=== PATIENT | female | born 1990 | race Caucasian/White ===

== ENCOUNTER 2017-08-07 18:13 | Inpatient (IN) | payer BC, OTHER ==
[~2017-08-07] VITALS: Ht 162.6 cm; Wt 99.7 kg
[2017-08-07 18:28] VITALS: Ht 162.6 cm; Wt 99.7 kg
[2017-08-07] MEDS ORDERED: PREN1TAB13 PO (18:28)
[2017-08-07 18:29] VITALS: BP 125/67; PULSE 109; RESP 18
[2017-08-07 19:37] LABS: ADD UMIC YES; UR ASCORBIC ACID NEGATIVE (NEGATIVE); UR BACTERIA FEW /HPF (NONE SEEN); UR BILIRUBIN (Dip) NEGATIVE (NEGATIVE); UR BLOOD (Dip) 1+ mg/dL (NEGATIVE); UR CLARITY CLEAR (CLEAR); UR COLOR YELLOW (YELLOW); UR GLUCOSE (Dip) NEGATIVE (NEGATIVE); UR KETONES (Dip) NEGATIVE (NEGATIVE); UR LEUKOCYTE ESTERASE (Dip) 3+ Leu/ul (NEGATIVE); UR NITRITE (Dip) NEGATIVE (NEGATIVE); UR RBC 2 /HPF (0-5); UR SPECIFIC GRAVITY (Dip) 1.008 (1.003-1.030); UR TOTAL PROTEIN (Dip) NEGATIVE (NEGATIVE); UR UROBILINOGEN (Dip) NEGATIVE (NEGATIVE)
--- NOTE | 2017-08-07 19:48 | RADRPT ---
PROCEDURE: LIMITED OBSTETRICAL ULTRASOUND CLINICAL INDICATION: 26 years of age, female. . labor. TECHNIQUE: Multiple sonographic images of the pelvis were obtained. Transabdominal imaging was pe rformed and transvaginal imaging of the cervix was performed. The images were reviewed on a PACS [employer]. Image quality: Satisfactory. COMPARISON: No prior studies are available for comparison. FINDINGS: [place] : Number of fetuses: 1 GENERAL EVALUATION: Cardiac activity: Present. FHR 125 bpm Presentation: Cephalic. Placenta: Placenta site: Anterior. No evidence of placental previa. Placental grade 1. Amniotic fluid: Grossly normal. Maximal vertical pocket at incompetent cervix measures 6.5 cm. Maxim um vertical pocket in the remainder of the gestational sac measures 2.5 cm. Cervix (transvaginal): 0 cm. The amniotic sac protrudes through an incompetent cervix into the vagin a. DATING: Clinical ANGELITO: Unknown Clinical EGA: Unknown BIOMETRY: BPD = 4.8 cm , 20 weeks 4 days HC = 17.5 cm , 20 weeks 0 days AC = 17.1 cm , 22 weeks 1 day FL = 3.8 cm , 22 weeks 1 day Composite sonographic age: 21 weeks 2 days plus or minus 2 weeks Estimated due date by ultrasound measurements: December 16, 2017 EFW 454 grams. LIMITED ANATOMY: Not evaluated. IMPRESSION: 1. Single living fetus in cephalic presentation. 2. Composite sonographic age is 21 weeks 2 days and estimated due date by ultrasound measurements is December 16, 2017. Estimated weight is 454 grams. 3. Amniotic fluid volume is grossly normal. 4. Incompetent cervix with no measurable cervical canal. The amniotic sac protrudes through an incom petent cervix into the vagina ("bulging bag"). 5. Anterior placenta, grade 1. Findings with regards to incompetent cervix were discussed with Chikis Holden RN by Dr. Lisandra Arreguin on August 07, 2017 at 07:45 p.m.. She will give the results to the provider. RPTAT: HCTS Physician Herlinda Date Time Electronically viewed and signed by Physician Herlinda on 08/07/2017 19:47 CS/
[2017-08-07] MEDS ORDERED: ACETAMINOPHEN 325 MG TAB PO PRN (21:00)
[2017-08-07] MEDS ORDERED: AL HYDROX/MG HYDROX/SIMETH 30 ML CUP PO PRN (21:00)
--- NOTE | 2017-08-07 21:57 | HP ---
Date/Time of Note Date/Time of Note DATE: 08/07/17 TIME: 21:15 OB - History Hx of Present Free Text/Dictation August 07, 2017. 26-year-old with IUP at 21 weeks and 2 days with care with Dr. Norm Hamilton again presented with complaint of pelvic pain for the last 3 days and increase vaginal discharge for the last 2 days. Patient today felt a bulge inside her vagina that brought her to the hospital. She was noted to have5-6 cm cervical dilatation with hourglassing bulging bag of water through the cervix. Ultrasound showed evidence of cervical dilatation and cervical incompetence. Adequate amniotic fluid noted in obstetric ultrasound Patient denies any other complaints. Denies any competition during her course. Denies any abnormal Pap smear or procedure on her cervix : 1 Para: 0 Spontaneous : 0 Therapeutic : 0 Care: Good Care Ultrasounds: Other (Normal first trimester ultrasound) Obstetrical Complications: None Past Family/Social History * Past Medical, Surgical, Family and Obstetric Histories reviewed from chart. OB Admission Exam Vital Signs Vital Signs Vital Signs Date Time Temp Pulse Resp B/P Pulse Ox O2 Delivery O2 Flow Rate FiO2 08/07/17 18:29 98.9 109 18 125/67 97 Room Air Physical Exam HEENT: WNL Lungs: Clear Abdomen: WNL Extremities: Normal Cervical Dilatation: 6cm Effacement: Other (90%) Station: 0 Membranes: Intact Amniotic Fluid: Other (BBOW seen in vaginal exam) Heart Rate: 120's Intensity: Moderate OB Assessment/Plan Other Assessment: IUP at 21 weeks and 2 days by Stated date consistent with today's ultrasound labor vs cervical incompetence Advance cervical dilation with hourglassing of the membranes through the cervix seen Discussed about risk for PTL, PPROM at extreme prematurity, Understand that the baby at this GA is non viable and non resusciatated by claim processor due to extreme prematurity and poor out come Not a candidate for Urgent or emergent cerclage due to advanced cervical dilatation Increased risk of rupture of membrane during the procedure discussed with the patient UTI noted . Asymptomatic UTI. Needs treatment Discussed with the patient and consulted maternal- medicine , DR Castellanos, who recommended delivery however patient desires to proceed with expectant management poor outcome in case of spontaneous rupture of membrane with advanced cervical dilatation discussed with the patient. Patient still desires to proceed with expectant management Consider treatment for UTI with IV Ancef Placed the patient in Trendelenburg Strict bedrest Colace 100 mg p.o. twice daily Perinatology and neonatology consultation tomorrow Patient verbalized understanding . all questions were answered CHAVA JORGE MD Aug 07, 2017 21:57
[2017-08-07] MEDS: LACTATED RINGER'S 1,000 ML IV SCH (22:19)
[2017-08-07] MEDS: CEFAZOLIN 2 GM/50 ML (PMX) 50 ML IVPB SCH (22:28)
[2017-08-07 22:42] LABS: BASOPHIL # 0.1 10^3/ul (0.0-0.1); BASOPHILS % 0.3 % (0.0-2.0); EOSINOPHILS # 0.1 10^3/ul (0.0-0.5); EOSINOPHILS % 0.3 % (0.0-7.0); HEMATOCRIT 34.8 % (37.0-47.0); HEMOGLOBIN 11.6 g/dl (12.0-16.0); LYMPHOCYTES # 2.2 10^3/ul (0.8-2.9); LYMPHOCYTES % 12.4 % (15.0-51.0); MEAN CORPUSCULAR HEMOGLOBIN 28.4 pg (29.0-33.0); MEAN CORPUSCULAR HGB CONC 33.3 g/dl (32.0-37.0); MEAN CORPUSCULAR VOLUME 85.3 fl (82.0-101.0); MEAN PLATELET VOLUME 10.1 fl (7.4-10.4); MONOCYTE # 1.1 10^3/ul (0.3-0.9); MONOCYTES % 5.8 % (0.0-11.0); NEUTROPHIL # 14.5 10^3/ul (1.6-7.5); NEUTROPHILS % 80.4 % (39.0-77.0); PLATELET COUNT 254 10^3/UL (140-415); RED BLOOD COUNT 4.08 10^6/ul (4.20-5.40); RED CELL DISTRIBUTION WIDTH 12.2 % (11.5-14.5); WHITE BLOOD COUNT 18.1 10^3/ul (4.8-10.8)
[2017-08-07 23:06] LABS: INR 0.97; PARTIAL THROMBOPLASTIN TIME 27.2 Sec (25.0-35.0); PROTIME 12.9 Sec (12.2-14.2)
[2017-08-07] MEDS ORDERED: BUTORPHANOL 2 MG INJ IV PRN (23:30)
[2017-08-07] MEDS: DOCUSATE SODIUM 100 MG CAP PO SCH (23:30)
[2017-08-07 23:52] LABS: ALBUMIN 3.7 g/dl (3.3-4.9); ALBUMIN/GLOBULIN RATIO 0.94; BILIRUBIN,INDIRECT 0.4 mg/dl (0-1.1); BILIRUBIN,TOTAL 0.4 mg/dl (0.2-1.3); CALCIUM 9.6 mg/dl (8.4-10.2); CREATININE 0.61 mg/dl (0.44-1.00); POTASSIUM 3.7 mmol/L (3.5-5.1); TOTAL PROTEIN 7.6 g/dl (6.1-8.1)
--- NOTE | 2017-08-08 03:42 | TRIAGE ---
OB Triage Datetime Report Generated by CPN: 08/08/2017 03:42 Datetime: 08/08/2017 03:05 Temperature Route: Oral Pain Assessment Pain Scale: 4 Pain Presence: Intermittent Pain Type: Cramping; Contraction Pain Location: Abdomen Pain Relief Measures: Comfort Measures Pain Assessment Comments: Pt reports occasional UCs/cramping. Pt states no headache. Datetime: 08/08/2017 03:00 Labor Evaluation Frequency: Occasional Monitor Mode: External Duration (sec)2399: 40-60 Quality: Mild Resting Tone [place]: Relaxed Datetime: 08/08/2017 02:00 Labor Evaluation Frequency: Occasional Monitor Mode: External Quality: Mild Resting Tone [place]: Relaxed Contraction Comments: Uterine irritability noted. GA 21.3 Datetime: 08/08/2017 01:35 Temperature Route: Oral Pain Assessment Pain Scale: 4 Pain Presence: Intermittent Pain Type: Contraction Pain Location: Abdomen; Head Pain Relief Measures: Comfort Measures Pain Assessment Comments: Pt states 410 UC pain and 410 headache pain. Pt denies s/sx of vision changes. Datetime: 08/08/2017 01:00 Labor Evaluation Frequency: N/A Monitor Mode: External Resting Tone [place]: Relaxed Contraction Comments: Uterine irritability noted Datetime: 08/08/2017 00:00 Labor Evaluation Frequency: Occasional Monitor Mode: External Quality: Mild Resting Tone [place]: Relaxed Contraction Comments: [place] adjusted, pt sidelying position, GA 21.3 Comments: Doppler done at 2333 Datetime: 08/07/2017 23:33 Heart Rate FHR Baseline Rate: 150 Monitor Mode: Doppler Comments: Doppler q shift per MD order Datetime: 08/07/2017 23:32 Pain Assessment Pain Scale: 4 Pain Presence: Intermittent Pain Type: Contraction Pain Location: Abdomen Pain Relief Measures: Comfort Measures Pain Assessment Comments: Pt states that pain is reduced compared to at time of admission - origin ally pain level 8/10 with UCs. Datetime: 08/07/2017 23:30 Time of Arrival: 08/07/2017 22:00 EGA: 21.2 Arrived By: Stretcher Arrived From: Other Unit in Hospital Datetime: 08/07/2017 23:16 Assessment Type: Admission Assessment Maternal Assessment Level of Consciousness: Fully Conscious DTR's/Clonus: DTRs 2+; No Clonus Headache: Denies Blurred Vision: No Respiratory Effort: Unlabored; Regular Rhythm; Equal Expansion Breath Sounds, Left: Clear and Equal Breath Sounds, Right: Clear and Equal Nausea/Vomiting: Denies RUQ Epigastric Pain: Denies Lower Extremities Edema: None Degree: None Upper Extremities Edema: None Degree: None Facial Edema: None Fall Risk Assessment History of Falling: (0) No Secondary Diagnosis: (0) No Ambulatory Aid: (0) Bedrest/Nurse Assist Gait: (0) Normal/Bedrest/Immobile Mental Status: (0) Oriented to Own Ability Datetime: 08/07/2017 23:00 Labor Evaluation Frequency: N/A Monitor Mode: External Resting Tone [place]: Relaxed Contraction Comments: Uterine activity noted Datetime: 08/07/2017 22:45 Stage of : Antepartum Datetime: 08/07/2017 22:39 Membrane Status: Ruptured Datetime: 08/07/2017 20:32 Vaginal Exam Dilatation (cms): 4.0 Datetime: 08/07/2017 19:27 Membrane Status: Bulging Datetime: 08/07/2017 18:25 Assessment Type: Triage Maternal Assessment Level of Consciousness: Fully Conscious DTR's/Clonus: DTRs 2+; No Clonus Headache: Denies Blurred Vision: No Respiratory Effort: Unlabored; Regular Rhythm; Equal Expansion Breath Sounds, Left: Clear and Equal Breath Sounds, Right: Clear and Equal Nausea/Vomiting: Denies RUQ Epigastric Pain: Denies Lower Extremities Edema: None Degree: None Upper Extremities Edema: None Degree: None Facial Edema: None Fall Risk Assessment History of Falling: (0) No Secondary Diagnosis: (0) No Ambulatory Aid: (0) Bedrest/Nurse Assist IV Therapy: (0) No Gait: (0) Normal/Bedrest/Immobile Mental Status: (0) Oriented to Own Ability Fall Score: 0 Fall Risk Score Definition: No Risk: No action required Datetime: 08/07/2017 18:23 Time of Arrival: 08/07/2017 18:04 EGA: 21.2 Arrived By: Ambulatory Arrived From: Home Chief Complaint: PT HERE C/O CRAMPS/VAG DISCHARGE Movement: Present Contractions: Irregular Rupture of Membranes: Unsure Vaginal Bleeding: None Vaginal Discharge: Present Recent Sexual Intercouse: Denies Abdominal Trauma: Not Applicable Patient Complaints: Cramping; Back Pain Time Provider Notified: 08/07/2017 18:35 Provider Notified: ESHAGHIAN Initial Plan: EFW/NELLI/CVL/UA/ROM PLUS/ Datetime: 08/07/2017 18:18 Monitor Mode: External Monitor Mode: Doppler Comments: fht's doppled in the 150's
[2017-08-08] MEDS: LACTATED RINGER'S 1,000 ML IV SCH ×2 (05:09→09:55)
[2017-08-08] MEDS: BUTORPHANOL 2 MG INJ IV PRN ×2 (06:08→09:37)
[2017-08-08] MEDS: CEFAZOLIN 2 GM/50 ML (PMX) 50 ML IVPB SCH ×3 (06:09→21:50)
[2017-08-08] MEDS: DOCUSATE SODIUM 100 MG CAP PO SCH (09:00)
[2017-08-08] MEDS ORDERED: PRENATAL VITAMIN PO SCH (09:00)
--- NOTE | 2017-08-08 10:08 | CONS ---
Date/Time of Note Date/Time of Note DATE: 08/08/17 TIME: 09:55 Consultation Date/Type/Reason Admit Date/Time Aug 07, 2017 at 20:30 Date of Consultation: Aug 08, 2017 Reason for Consultation labor , premature rupture of membranes with history of leaking amniotic fluid for the last 3 days Gestational age 21 and 3/7 weeks-consult requested by the admitting doctor Dr. Taylor Hx of Present Illness 26-year-old mom, 1, para 0 admitted with history of intermittent lower abdominal pain for the last 3 days and excessive yellow vaginal fluidy discharge for the last 3 days. Rupture of membranes positive and mom continues to leak fluid. She has bulging bag of water and dilated cervix estimated weight is 454 g .. Gestational age 21 and 3 7 weeks- nonviable fetus. : Had care with and denies history of any problems other than excessive watery vaginal discharge for the last 3 days. She is A, Rh+ and her CBC upon admission shows WBC of 18,100 with 80 neutrophils and 12 lymphocytes. She is on antibiotics now. Other labs from the clinic not available at this time. Hepatitis.B Surface antigen negative and HIV negative. Additional Comments I have explained to mom and her significant other with maternal grandmother present about non-viability and no resuscitative efforts after even if the baby has heart rate , possible respiratory effort and movement for a short while at 21 and 3 /7 weeks. Parents seem to want resuscitative efforts made but have explained to them about non-viability and they want to explore with the door technician whether tocolytics should be started on mom and she wants to continue the if possible. At this point if the baby delivers within the next 24-72 hours , we will not resuscitate the baby in view of non- viability and do only comfort care . Parents seem borderline agreeable about no resuscitation if the baby is delivered within the next 24-72 hours. Thank you very much for allowing me to take part in the care of this patient . Will follow the mom as needed . Past Medical History Medical History: no pertinent history Past Surgical History Past Surgical Hx: no surgical history Family History Significant Family History: no pertinent family hx Social History Alcohol Use: none Smoking Status: Never smoker Drug Use: none Other Social History First child for the parents, no other history pertinent to mom's condition. Exam/Review of Systems Vital Signs Vitals Vital Signs Date Time Temp Pulse Resp B/P Pulse Ox O2 Delivery O2 Flow Rate FiO2 08/07/17 18:29 98.9 109 18 125/67 97 Room Air Intake and Output 08/07/17 08/07/17 08/08/17 15:00 23:00 07:00 Intake Total 125 ml 875 ml Output Total 850 ml Balance 125 ml 25 ml Results Result Diagram: 08/07/17 2215 08/07/174 Results 24 hrs Laboratory Tests Test 08/07/17 18:20 08/07/17 20:20 08/07/17 21:24 08/07/17 22:15 Urine Color YELLOW Urine Clarity CLEAR Urine pH 6.0 Urine Specific [place] 1.008 Urine Ketones NEGATIVE Urine Nitrite NEGATIVE Urine Bilirubin NEGATIVE Urine Urobilinogen NEGATIVE Urine Leukocyte Esterase 3+ H Urine Microscopic RBC 2 Urine Microscopic WBC 46 H Urine Bacteria FEW A Urine Hemoglobin 1+ H Urine Glucose NEGATIVE Urine Total Protein NEGATIVE Membranes Rupture POSITIVE H Prothrombin Time 12.9 Prothrombin Time Ratio 1.0 INR International Normalized Ratio 0.97 Activated Partial Thromboplast Time 27.2 Sodium Level 134 L Potassium Level 3.7 Chloride Level 101 Carbon Dioxide Level 23 Anion Gap 14 Blood Urea Nitrogen 8 Creatinine 0.61 Glucose Level 81 Calcium Level 9.6 Total Bilirubin 0.4 Direct Bilirubin 0.00 Indirect Bilirubin 0.4 Aspartate Amino Transf (AST/SGOT) 30 Alanine Aminotransferase (ALT/SGPT) 26 Alkaline Phosphatase 99 Total Protein 7.6 Albumin 3.7 Globulin 3.90 H Albumin/Globulin Ratio 0.94 White Blood Count 18.1 H Red Blood Count 4.08 L Hemoglobin 11.6 L Hematocrit 34.8 L Mean Corpuscular Volume 85.3 Mean Corpuscular Hemoglobin 28.4 L Mean Corpuscular Hemoglobin Concent 33.3 Red Cell Distribution Width 12.2 Platelet Count 254 Mean Platelet Volume 10.1 Neutrophils % 80.4 H Lymphocytes % 12.4 L Monocytes % 5.8 Eosinophils % 0.3 Basophils % 0.3 Nucleated Red Blood Cells % 0.0 Neutrophils # 14.5 H Lymphocytes # 2.2 Monocytes # 1.1 H Eosinophils # 0.1 Basophils # 0.1 Nucleated Red Blood Cells # 0.0 Hepatitis B Surface Antigen NEGATIVE HIV (1&2) Antibody NEGATIVE Medications Medications Current Medications Lactated Ringer's (Lr) 1,000 ml @ 125 mls/hr Q8H IV Last administered on 08/08 05:09; Admin Dose 125 MLS/HR; Start 08/07/17 at 20:37 Prenat Multivit/ [employer]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/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 Ac () 1 tab DAILY PO ; Start at 09:00 Docusate Sodium (Colace) 100 mg BID PO ; Start 08/07/17 at 21:00 Acetaminophen (Tylenol Tab) 650 mg Q4H PRN PO PAIN AND OR ELEVATED TEMP; Start 08/07/17 at 21:00 Al Hydrox/Mg Hydrox/ Simethicone 30 ml 30 ml Q6H PRN PO GASTROINTESTINAL UPSET ; Start 08/07/17 at 21:00 Cefazolin Sodium/ Dextrose (Ancef 2 Gm/50 ml (Pmx)) 50 ml @ 100 mls/hr Q8 IVPB Last administered on 08/08/17 06:09; Admin Dose 100 MLS/HR; Start 08/07/17 at 22:00 Butorphanol Tartrate (Stadol) 2 mg Q3H PRN IV PAIN Last administered on 09:37; Admin Dose 2 MG; Start 08/07/17 at 23:30 Butorphanol Tartrate (Stadol) 1 mg Q3H PRN IV PAIN; Start 08/07/17 at 23:30 KATTY SALAS MD Aug 08, 2017 10:06
[2017-08-08] MEDS ORDERED: LACTATED RINGER'S 1,000 ML IV SCH (10:21)
[2017-08-08] MEDS ORDERED: OXYTOCIN 30 UNITS/LR 500 ML IV ONE (10:21)
[2017-08-08] MEDS ORDERED: CARBOPROST 250 MCG INJ IM PRN ×2 (10:30→11:00)
[2017-08-08] MEDS ORDERED: MISOPROSTOL 200 MCG TAB PR PRN ×2 (10:30→11:00)
[2017-08-08] MEDS ORDERED: METHYLERGONOVINE 0.2 MG INJ IM PRN ×2 (10:30→11:00)
[2017-08-08] MEDS ORDERED: OXYTOCIN 30 UNITS/LR 500 ML IV PRN ×2 (10:30→11:00)
[2017-08-08] MEDS ORDERED: LIDOCAINE 1% (MPF) 30 ML INJ INJ PRN (10:30)
--- NOTE | 2017-08-08 10:49 | LDN ---
Date/Time of Note Date/Time of Note DATE: 08/08/17 TIME: 10:45 Delivery Summary IUP at 21 weeks gestational age labor/premature rupture of membrane Weight 330 Grams Weeks of Gestation 21 Placenta Delivered: Spontaneously Meconium: none Episiotomy: No Laceration repair: No laceration Anesthesia type: None Estimated blood loss: 100 Sponge & Needle done & correct: Yes All needle counts correct: Yes Any foreign bodies felt in the: No Problems: Delivery Information Sex Infant Sex: female Apgars 1 Minute: 3 5 Minute: 2 10 Minute: 2 Suctioning Nose & mouth suctioned at jaziel: No Delee suction performed: No Umbilical Cord Umbilical cord with: 3 Vessels Cord presentations: no nuchal cord Cord Blood was obtained: No PATY CHUNG MD Aug 08, 2017 10:49
[2017-08-08] MEDS ORDERED: WITCH HAZEL/GLYCERIN PAD PR PRN (11:00)
[2017-08-08] MEDS ORDERED: DIPHENHYDRAMINE 25 MG CAP PO PRN (11:00)
[2017-08-08] MEDS ORDERED: SENNA/DOCUSATE NA (8.6MG/50MG) TAB PO PRN (11:00)
[2017-08-08] MEDS ORDERED: ONDANSETRON 4 MG TAB PO PRN (11:00)
[2017-08-08] MEDS ORDERED: OXYCODONE/ASPIRIN (4.88/325) TAB PO PRN ×2 (11:00)
[2017-08-08] MEDS ORDERED: DIBUCAINE 1% 30 GM OINT TOP PRN (11:00)
[2017-08-08] MEDS ORDERED: BENZOCAINE 20% 56 ML SPRAY TOP PRN (11:00)
[2017-08-08] MEDS ORDERED: LANOLIN 7 GM TUBE TOP PRN (11:00)
[2017-08-08] MEDS ORDERED: ONDANSETRON 4 MG INJ IV PRN (11:00)
[2017-08-08] MEDS ORDERED: ZOLPIDEM 5 MG TAB PO PRN (11:00)
[2017-08-08] MEDS ORDERED: OXYTOCIN 30 UNITS/LR 500 ML IV SCH (11:30)
[2017-08-08 11:38] LABS: BARBITURATES Negative (NEGATIVE); BENZODIAZEPINES Negative (NEGATIVE); CANNABINOIDS Negative (NEGATIVE); COCAINE Negative (NEGATIVE); OPIATES Negative (NEGATIVE)
[2017-08-08 11:46] LABS: BASOPHIL # 0.1 10^3/ul (0.0-0.1); BASOPHILS % 0.2 % (0.0-2.0); HEMATOCRIT 32.6 % (37.0-47.0); LYMPHOCYTES # 0.8 10^3/ul (0.8-2.9); LYMPHOCYTES % 3.7 % (15.0-51.0); MEAN CORPUSCULAR HEMOGLOBIN 28.5 pg (29.0-33.0); MEAN CORPUSCULAR HGB CONC 33.7 g/dl (32.0-37.0); MEAN CORPUSCULAR VOLUME 84.5 fl (82.0-101.0); MEAN PLATELET VOLUME 9.9 fl (7.4-10.4); MONOCYTE # 0.8 10^3/ul (0.3-0.9); MONOCYTES % 3.9 % (0.0-11.0); NEUTROPHIL # 18.8 10^3/ul (1.6-7.5); NEUTROPHILS % 90.9 % (39.0-77.0); PLATELET COUNT 239 10^3/UL (140-415); RED BLOOD COUNT 3.86 10^6/ul (4.20-5.40); RED CELL DISTRIBUTION WIDTH 12.1 % (11.5-14.5); WHITE BLOOD COUNT 20.7 10^3/ul (4.8-10.8)
--- NOTE | 2017-08-08 11:54 | PN ---
Date/Time of Note Date/Time of Note DATE: 08/08/17 TIME: 11:33 OB Subjective Subjective Subjective Number 2016 Hospital consult. This patient is a 26 years old primigravida admitted in the hospital yesterday due to premature contractions she is 21 weeks and 3 days now her main complaint is lower abdominal pain and contractions. Prior to this admission to the hospital she had a fairly normal course up to a week ago when she started having contractions abdomen was examined in the clinic she was around 4-4 cm dilated with bulging intact amniotic membranes. heart tone was present. Patient was requesting pain medication due to contractions. Both patient her and deformity very concerned of her premature contractions and prospect of loss of this baby. On my examination her ear nose throat appears to be normal neck was normal no thyromegaly no lymph node enlargement anywhere in the body Her chest was clear to auscultation or percussion heart normal sinus rhythm.No murmur. Abdomen was soft she was having fairly frequent contractions and was complaining of pain as a result of contraction. As I mentioned she was given analgesics. On pelvic examination the membrane was bulging as well as part of the head and cervix was dilated up to 7-8 cm when I saw her. She already received antibiotic. Laboratory Tests Test 08/07/17 18:20 08/07/17 20:20 08/07/17 21:24 08/07/17 22:15 Urine Color YELLOW Urine Clarity CLEAR Urine pH 6.0 Urine Specific [place] 1.008 Urine Ketones NEGATIVEmg/dL Urine Nitrite NEGATIVEmg/dL Urine Bilirubin NEGATIVEmg/dL Urine Urobilinogen NEGATIVEmg/dL Urine Leukocyte Esterase 3+[place]/ul Urine Microscopic RBC 2/HPF Urine Microscopic WBC 46/HPF Urine Bacteria FEW/HPF Urine Hemoglobin 1+mg/dL Urine Glucose NEGATIVEmg/dL Urine Total Protein NEGATIVEmg/dl Urine Opiates Screen Negative Urine Barbiturates Negative Urine Amphetamines Screen Negative Urine Benzodiazepines Screen Negative Urine Cocaine Screen Negative Urine Cannabinoids Negative Membranes Rupture POSITIVE Prothrombin Time 12.9Sec Prothrombin Time Ratio 1.0 INR International Normalized Ratio 0.97 Activated Partial Thromboplast Time 27.2Sec Sodium Level 134mmol/L Potassium Level 3.7mmol/L Chloride Level 101mmol/L Carbon Dioxide Level 23mmol/L Anion Gap 14 Blood Urea Nitrogen 8mg/dl Creatinine 0.61mg/dl Glucose Level 81mg/dl Calcium Level 9.6mg/dl Total Bilirubin 0.4mg/dl Direct Bilirubin 0.00mg/dl Indirect Bilirubin 0.4mg/dl Aspartate Amino Transf (AST/SGOT) 30IU/L Alanine Aminotransferase (ALT/SGPT) 26IU/L Alkaline Phosphatase 99IU/L Total Protein 7.6g/dl Albumin 3.7g/dl Globulin 3.90g/dl Albumin/Globulin Ratio 0.94 White Blood Count 18.110^3/ul Red Blood Count 4.0810^6/ul Hemoglobin 11.6g/dl Hematocrit 34.8% Mean Corpuscular Volume 85.3fl Mean Corpuscular Hemoglobin 28.4pg Mean Corpuscular Hemoglobin Concent 33.3g/dl Red Cell Distribution Width 12.2% Platelet Count 39497^3/UL Mean Platelet Volume 10.1fl Neutrophils % 80.4% Lymphocytes % 12.4% Monocytes % 5.8% Eosinophils % 0.3% Basophils % 0.3% Nucleated Red Blood Cells % 0.0/100WBC Neutrophils # 14.510^3/ul Lymphocytes # 2.210^3/ul Monocytes # 1.110^3/ul Eosinophils # 0.110^3/ul Basophils # 0.110^3/ul Nucleated Red Blood Cells # 0.010^3/ul Hepatitis B Surface Antigen NEGATIVE HIV (1&2) Antibody NEGATIVE Current Medications Medications (Trade) Dose Ordered Sig/Jennifer Route PRN Reason Start Time Stop Time Status Last Admin Dose Admin Lactated Ringer's (Lr) 1,000 ml @ 125 mls/hr Q8H IV 08/07/17 20:37 08/08/17 09:55 Prenat Multivit/ [place]/Iron/Folic Ac () 1 tab DAILY PO 08/08/17 09:00 Docusate Sodium (Colace) 100 mg BID PO 08/07/17 21:00 Acetaminophen (Tylenol Tab) 650 mg Q4H PRN PO PAIN AND OR ELEVATED TEMP 08/07/17 21:00 Al Hydrox/Mg Hydrox/ Simethicone 30 ml 30 ml Q6H PRN PO GASTROINTESTINAL UPSET 08/07/17 21:00 Cefazolin Sodium/ Dextrose (Ancef 2 Gm/50 ml (Pmx)) 50 ml @ 100 mls/hr Q8 IVPB 08/07/17 22:00 08/08/17 06:09 Butorphanol Tartrate (Stadol) 2 mg Q3H PRN IV PAIN 08/07/17 23:30 08/08/17 09:37 Butorphanol Tartrate 1 mg 1 mg Q3H PRN IV PAIN 08/07/17 23:30 Oxytocin/Lactated Ringer's 500 ml @ ud STK-MED ONCE IV 08/08/17 10:21 08/08/17 10:22 DC Lactated Ringer's (Lr) 1,000 ml @ 125 mls/hr Q8H IV 08/08/17 10:21 Lidocaine 30 ml 30 ml ONCE PRN INJ EPISIOTOMY/TEARING 08/08/17 10:30 Oxytocin/Lactated Ringer's 500 ml @ 0 mls/hr ONCE PRN IV For Hemorrhage Management 08/08/17 10:30 Methylergonovine Maleate (Methergine) 0.2 mg ONCE PRN IM VAGINAL BLEEDING 08/08/17 10:30 Carboprost Tromethamine (Hemabate) 250 mcg ONCE PRN IM VAGINAL BLEEDING 08/08/17 10:30 Misoprostol 1000 mcg 1,000 mcg ONCE PRN NV VAGINAL BLEEDING 08/08/17 10:30 Lactated Ringer's 1,000 ml @ 125 mls/hr Q8H IV* 08/08/17 10:51 Cefazolin Sodium/ Dextrose (Ancef 2 Gm/50 ml (Pmx)) 50 ml @ 100 mls/hr Q8 IVPB 08/08/17 14:00 08/09/17 06:29 Ibuprofen (Motrin) 600 mg Q6 PO 08/08/17 12:00 Oxycodone/Aspirin (Percodan) 1 tab Q3H PRN PO PAIN LEVEL 1-5 08/08/17 11:00 Oxycodone/Aspirin (Percodan) 2 tab Q3H PRN PO PAIN LEVEL 6-10 08/08/17 11:00 Ondansetron HCl (Zofran Inj) 4 mg Q6H PRN IV NAUSEA AND/OR VOMITING 08/08/17 11:00 Ondansetron HCl (Zofran Tab) 4 mg Q6H PRN PO NAUSEA AND/OR VOMITING 08/08/17 11:00 Diphenhydramine HCl (Benadryl) 25 mg Q6H PRN PO PRURITUS 08/08/17 11:00 Zolpidem Tartrate (Ambien) 5 mg QHS PRN PO INSOMNIA 08/08/17 11:00 Senna/Docusate Sodium (Senokot-S) 1 tab BID PO 08/08/17 21:00 Senna/Docusate Sodium (Senokot-S) 1 tab BID PRN PO CONSTIPATION 08/08/17 11:00 Witch Jaquelin/ Glycerin (Tucks Pads) 1 pad BEDSIDE MEDICATION PRN NV HEMORRHOID/EPISIOTMY PAIN 08/08/17 11:00 Benzocaine (Dermoplast [place]) 1 spray BEDSIDE MEDICATION PRN TOP HEMORRHOID/EPISIOTMY PAIN 08/08/17 11:00 Dibucaine (Nupercainal) 1 applic BEDSIDE MEDICATION PRN TOP HEMORRHOID/EPISIOTMY PAIN 08/08/17 11:00 Lanolin 1 applic 1 applic BEDSIDE MEDICATION PRN TOP BEDSIDE FOR MARITA TO NIPPLES 08/08/17 11:00 Oxytocin/Lactated Ringer's 500 ml @ 0 mls/hr ONCE PRN IV For Hemorrhage Management 08/08/17 11:00 Methylergonovine Maleate (Methergine) 0.2 mg ONCE PRN IM VAGINAL BLEEDING 08/08/17 11:00 Carboprost Tromethamine (Hemabate) 250 mcg ONCE PRN IM VAGINAL BLEEDING 08/08/17 11:00 Misoprostol (Cytotec) 1,000 mcg ONCE PRN NV VAGINAL BLEEDING 08/08/17 11:00 With these findings I explained to the patient and her and the family the process of premature labor and impending delivery of this premature fetus. Due to considerable application and concerned about the family and the patient I explained to them the fact that this is the human nature. Although this fetus is more more than 90% will not survive. It could be considered an spontaneous and she still can become have 1-3 or more children. Disposition. We will continue pain medication and wait for her complete dilatation and delivery. was already notified and will attend the delivery End of dictation CLIFF GUILLORY MD Aug 08, 2017 11:54
[2017-08-08 12:43] LABS: INR 1.07; PROTIME 13.9 Sec (12.2-14.2); PT RATIO 1.1
[2017-08-08 12:44] LABS: PARTIAL THROMBOPLASTIN TIME 27.2 Sec (25.0-35.0)
[2017-08-08 14:00] VITALS: BP 116/72; PULSE 92; RESP 18
[2017-08-08] MEDS: LACTATED RINGER'S 1,000 ML IV* SCH ×2 (16:54→18:51)
[2017-08-08] MEDS: IBUPROFEN 600 MG TAB PO SCH ×2 (16:54→18:00)
[2017-08-08 19:02] VITALS: BP 105/63; PULSE 85; RESP 20
[2017-08-08 19:45] VITALS: BP 122/62; PULSE 80; RESP 20
[2017-08-08] MEDS ORDERED: SENNA/DOCUSATE NA (8.6MG/50MG) TAB PO SCH (21:00)
[2017-08-08 22:48] VITALS: BP 93/52; PULSE 73; RESP 18
[2017-08-09] MEDS: IBUPROFEN 600 MG TAB PO SCH ×5 (00:06→18:50)
[2017-08-09] MEDS: LACTATED RINGER'S 1,000 ML IV* SCH (02:51)
[2017-08-09 04:05] VITALS: BP 104/58; PULSE 72; RESP 20
[2017-08-09] MEDS: CEFAZOLIN 2 GM/50 ML (PMX) 50 ML IVPB SCH (05:41)
[2017-08-09 06:06] LABS: BASOPHILS % 0.4 % (0.0-2.0); EOSINOPHILS # 0.1 10^3/ul (0.0-0.5); HEMATOCRIT 28.6 % (37.0-47.0); HEMOGLOBIN 9.5 g/dl (12.0-16.0); LYMPHOCYTES # 2.2 10^3/ul (0.8-2.9); LYMPHOCYTES % 20.1 % (15.0-51.0); MEAN CORPUSCULAR HEMOGLOBIN 28.6 pg (29.0-33.0); MEAN CORPUSCULAR HGB CONC 33.2 g/dl (32.0-37.0); MEAN CORPUSCULAR VOLUME 86.1 fl (82.0-101.0); MEAN PLATELET VOLUME 10.1 fl (7.4-10.4); MONOCYTE # 0.6 10^3/ul (0.3-0.9); MONOCYTES % 5.7 % (0.0-11.0); NEUTROPHILS % 71.6 % (39.0-77.0); PLATELET COUNT 198 10^3/UL (140-415); RED BLOOD COUNT 3.32 10^6/ul (4.20-5.40); RED CELL DISTRIBUTION WIDTH 12.4 % (11.5-14.5); WHITE BLOOD COUNT 11.1 10^3/ul (4.8-10.8)
[2017-08-09 09:53] VITALS: BP 115/68; PULSE 83; RESP 20
[2017-08-09 14:30] VITALS: BP 107/61; PULSE 84; RESP 20
[2017-08-09 18:05] VITALS: BP 108/60; PULSE 72
--- NOTE | 2017-08-09 18:20 | QN ---
Documentation Comment Progress note day #1 Patient seen and evaluated awake alert oriented 3 denies any headache nausea vomiting shortness of breath visual changes epigastric pain Vital signs stable afebrile Abdomen soft nontender uterine fundus below umbilicus negative distention Extremity negative edema no calf tenderness Assessment status post vaginal delivery day 1 to a nonviable fetus at 21 weeks gestational age Patient had appropriate bereavement and social counseling Plan discharge home today in follow-up in the office in 2 weeks start iron supplement PATY CHUNG MD Aug 09, 2017 18:20
--- NOTE | 2017-08-09 18:27 | PD.PPDC ---
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
--- NOTE | 2017-08-10 07:19 | DS ---
DATE OF ADMISSION: 08/07/2017 DATE OF DISCHARGE: 08/09/2017 PRIMARY DIAGNOSIS: A 26-year-old 1, para 0, intrauterine at 21 weeks gestational age, labor/premature rupture of membrane with suspected cervical incompetence. PROCEDURE: Vaginal delivery. CONDITION ON DISCHARGE: Stable. ACTIVITY: None per vagina, no heavy lifting x6 weeks. DIET: Regular. MEDICATIONS ON DISCHARGE 1. Motrin. 2. Iron. 3. Colace. 4. Ambien. DISCHARGE SUMMARY: Ms. Elvira Haddad is a 22-year-old 1, para 0, status post a vaginal del shekhar to a nonviable female, 3, 2, 2 respectively at 1, 5, and 10 minutes. She had an unevent ful day #1, the patient had appropriate bereavement and social counseling. The patient d esires to be discharged home today. The patient's is at bedside and seems to be very suppor tive of his . She will follow up in my office in 2 weeks. Patient counseled for future pregnan cy. She is a good candidate for progesterone/[facility] treatment with possible cervical cerclage. Dictated By: PATY KATE/GERDA Conf#: [id number] DID#: [id number] CC: PATY CHUNG MD;*EndCC*
== END 2017-08-09 18:45 | disposition home or self-care (01) | DRG 775 ==
LOC: OBT 18:13 → L-D 18:17 → OBT 20:30 → OBG 08-08 14:08
PROVIDERS: ADMIT Obstetrics & Gynecology; ATTEND Obstetrics & Gynecology
PROC: 10E0XZZ Delivery of Products of Conception, External Approach (ICD-10-PCS; principal; 2017-08-08)
DX: O60.13X0 Preterm labor second trimester with preterm delivery third trimester, not applicable or unspecified (principal); Z37.1 Single stillbirth; Z3A.21 21 weeks gestation of pregnancy
CPT/HCPCS: 76815; 76817; 80053; 80307; 81001; 84112; 85025; 85610; 85730; 86592; 86703; 86850; 86900; 86901; 86920; 87070; 87340; G0463; J0595; J0690; J2590; J7120